=== PATIENT | male | born 1995 | race Hispanic/Latino ===

== ENCOUNTER 2020-05-19 11:35 | Emergency (ER) | payer OTHER ==
[2020-05-20 15:21] LABS: SARS-CoV-2 MS2 Positive; SARS-CoV-2 N Gene Positive; SARS-CoV-2 S Gene Positive; SARS-CoV-2 by NAA DETECTED (NotDetected); SARS-CoV-2 orf1ab Positive
== END 2020-05-19 12:26 | disposition home or self-care (01) ==
LOC: NAV ERS 11:35
DX: U07.1 COVID-19 (principal)
CPT/HCPCS: 87635; 99284; U0003

== ENCOUNTER 2020-06-02 14:53 | Emergency (ER) | payer OTHER, SELFPAY ==
[2020-06-04 12:53] LABS: SARS-CoV-2 by NAA Indeterminate (NotDetected)
[2020-06-04 12:54] LABS: SARS-CoV-2 MS2 Positive; SARS-CoV-2 N Gene Positive; SARS-CoV-2 S Gene Negative; SARS-CoV-2 orf1ab Negative
== END 2020-06-02 15:45 | disposition home or self-care (01) ==
LOC: NAV ERS 14:53
DX: Z09 Encounter for follow-up examination after completed treatment for conditions other than malignant neoplasm (principal); Z86.19 Personal history of other infectious and parasitic diseases
CPT/HCPCS: 87635; 99283; U0003